=== PATIENT | male | born 1995 | race Caucasian/White ===

== ENCOUNTER 2019-12-12 14:15 | Emergency (ER) | payer SELFPAY ==
[2019-12-12 14:36] VITALS: BP 144/84
--- NOTE | 2019-12-12 14:56 | UC ---
Knee Pain HPI - HPI Summary HPI Summary: 24-year-old male who was helping his friends move an engine out of a truck using a [employer] poultry picker when the chair repack her moved and he had his right foot planted firmly however it pushed him so that he somehow twisted his knee as he fell. He complains of pain to the medial aspect of his right knee. He was able to walk following that but with pain. He denies any other injury. - History of Current Complaint Chief Complaint: UCLowerExtremity Stated Complaint: RT KNEE INJURY Time Seen by Provider: 12/12/19 14:50 Hx Obtained From: Patient Onset/Duration: Sudden Onset, Lasting Hours Severity Initially: Moderate Severity Currently: Mild Pain Intensity: 3 Character: Dull, Aching Aggravating Factor(s): Movement, Weight Bearing Alleviating Factor(s): Rest Associated Signs And Symptoms: Positive: Negative Able to Bear Weight: Yes - Allergies/Home Medications Allergies/Adverse Reactions: Allergies Allergy/AdvReac Type Severity Reaction Status Date / Time No Known Allergies Allergy Verified 12/12/19 14:36 Home Medications: Home Medications NK [No Home Medications Reported] 12/12/19 [History Confirmed 12/12/19] PMH/Surg Hx/FS Hx/Imm Hx Previously Healthy: Yes - Surgical History Surgical History: Yes Surgery Procedure, Year, and Place: crushed tip of pinky - Family History Known Family History: Positive: Unknown - Social History Occupation: Unemployed Alcohol Use: Occasionally Substance Use Type: None Smoking Status (MU): Current Every Day Smoker Amount Used/How Often: 1 ppd Length of Time of Smoking/Using Tobacco: 3-4 yr Review of Systems All Other Systems Reviewed And Are Negative: Yes Motor: Positive: Negative Neurovascular: Positive: Negative Musculoskeletal: Positive: Other: - Pain medial aspect right knee however no swelling, bruising, erythema or deformity is noted. Is Patient Immunocompromised?: No Physical Exam Triage Information Reviewed: Yes Appearance: Well-Appearing, No Pain Distress, Well-Nourished Vital Signs: Initial Vital Signs Temp 97.6 F 12/12/19 14:30 Pulse 93 12/12/19 14:30 Resp 18 12/12/19 14:30 BP 144/84 12/12/19 14:30 Pulse Ox 100 12/12/19 14:30 Vital Signs Reviewed: Yes Musculoskeletal: Positive: Strength Intact, ROM Intact, No Edema, Other: - Good peripheral pulses, neuro sensation capillary refill. Full range of motion. He' s able to lift his leg up from the wheelchair with mild pain. No pain on palpation to the knee. No erythema, deformity, bruising or swelling is noted. He complains of pain to the medial aspect right knee. Neurological: Positive: Alert, Muscle Tone Normal Psychological Exam: Normal Skin Exam: Normal Knee Pain Course/Dx - Course Course Of Treatment: Right knee x-ray:FINDINGS: BONE DENSITY: Normal. BONES: There is no displaced fracture. JOINTS: There is no arthropathy. ALIGNMENT: There is no dislocation. SOFT TISSUES: Unremarkable. OTHER FINDINGS: None. IMPRESSION: NO ACUTE OSSEOUS INJURY. IF SYMPTOMS PERSIST, RECOMMEND REPEAT IMAGING. A knee immobilizer was placed. The patient did not feel he could place weight on his leg so crutches were given. He is to have a definite follow-up with the orthopedist early next week for continued evaluation. The patient is unemployed therefore he should be able to keep it elevated and ice intermittently over the next couple of days. - Differential Dx/Diagnosis Provider Diagnosis: Right knee sprain Discharge ED - Sign-Out/Discharge Documenting (check all that apply): Patient Departure All imaging exams completed and their final reports reviewed: Yes - Discharge Plan Condition: Fair Disposition: HOME Patient Education Materials: Knee Sprain (DC) Referrals: Mesfin Cid MD [Medical Doctor] - No Primary Care Phys,NOPCP [Primary Care Provider] - Additional Instructions: Elevate as much as possible, apply ice intermittently throughout the next day or 2. Take Tylenol every 4 hours and Motrin every 8 hours for pain. Keep the knee immobilizer on for comfort. Follow-up with the orthopedist in approximate 4-5 days if continued pain and no improvement. - Billing Disposition and Condition Condition: FAIR Disposition: Home
== END 2019-12-12 16:29 | disposition home or self-care (01) ==
LOC: UCCORT 14:15
DX: S83.91XA Sprain of unspecified site of right knee, initial encounter (principal); X50.9XXA Other and unspecified overexertion or strenuous movements or postures, initial encounter; Y93.89 Activity, other specified; Y92.9 Unspecified place or not applicable; F17.210 Nicotine dependence, cigarettes, uncomplicated
CPT/HCPCS: 99203; G0463